=== PATIENT | female | born 1970 | race African-American/Black ===

== ENCOUNTER 2019-07-12 13:15 | Emergency (ER) | payer BC ==
[2019-07-12 15:46] LABS: ADD MAN DIFF? NO
[2019-07-12 15:48] LABS: WHITE BLOOD COUNT 16.9 10^3/ul (4.8-10.8)
[2019-07-12 15:48] LABS: BASOPHIL # 0.1 10^3/ul (0.0-0.1); BASOPHILS % 0.5 % (0.0-2.0); EOSINOPHILS # 0.2 10^3/ul (0.0-0.5); EOSINOPHILS % 0.9 % (0.0-7.0); HEMATOCRIT 44.7 % (37.0-47.0); HEMOGLOBIN 14.5 g/dl (12.0-16.0); LYMPHOCYTES # 4.8 10^3/ul (0.8-2.9); LYMPHOCYTES % 28.3 % (15.0-51.0); MEAN CORPUSCULAR HEMOGLOBIN 29.8 pg (29.0-33.0); MEAN CORPUSCULAR HGB CONC 32.4 g/dl (32.0-37.0); MEAN CORPUSCULAR VOLUME 91.8 fl (82.0-101.0); MEAN PLATELET VOLUME 10.4 fl (7.4-10.4); MONOCYTE # 1.1 10^3/ul (0.3-0.9); MONOCYTES % 6.7 % (0.0-11.0); NEUTROPHIL # 10.7 10^3/ul (1.6-7.5); NEUTROPHILS % 63.3 % (39.0-77.0); PLATELET COUNT 353 10^3/UL (140-415); RED BLOOD COUNT 4.87 10^6/ul (4.20-5.40); RED CELL DISTRIBUTION WIDTH 13.9 % (11.5-14.5)
[2019-07-12 16:07] LABS: INR 0.97
[2019-07-12 16:08] LABS: ANION GAP 6 (5-13); BLOOD UREA NITROGEN 11 mg/dl (7-20); CALCIUM 9.5 mg/dl (8.4-10.2); CARBON DIOXIDE 26 mmol/L (21-31); CHLORIDE 109 mmol/L (97-110); CREATININE 0.59 mg/dl (0.44-1.00); Estimated GFR > 60 mL/min (>60); GLUCOSE 116 mg/dl (70-220); SODIUM 141 mmol/L (135-144)
[2019-07-12 16:20] LABS: TROPONIN-I < 0.012 ng/ml (0.000-0.120)
== END 2019-07-12 17:00 | disposition home or self-care (01) ==
LOC: E/R 13:15
DX: R20.2 Paresthesia of skin (principal); D72.829 Elevated white blood cell count, unspecified; F17.210 Nicotine dependence, cigarettes, uncomplicated; M79.661 Pain in right lower leg
CPT/HCPCS: 36415; 80048; 84484; 85025; 85610; 85730; 93005; 93970; 99285-25